=== PATIENT | male | born 1945 | race Caucasian/White ===

== ENCOUNTER 2019-02-21 17:48 | Emergency (ER) | payer MEDICARE ==
[~2019-02-21] VITALS: Ht 177.8 cm; Wt 97.5 kg
[2019-02-21] MEDS ORDERED: KETOROLAC TROMETHAMINE 30 MG/ML VIAL IV STA (18:10)
[2019-02-21] MEDS ORDERED: AMLODIPINE BESYLATE 5 MG TAB PO NR (18:15)
[2019-02-21 18:45] VITALS: BP 166/99
[2019-02-21] MEDS ORDERED: KETOROLAC TROMETHAMINE 60 MG/2 ML VIAL IM NR (18:45)
[2019-02-21] MEDS ORDERED: AMLODIPINE BESYLATE 5 MG TAB ONE (18:45)
[2019-02-21] MEDS ORDERED: AMLODIPINE BESYLATE 5 MG TAB PO ONE (19:45)
--- NOTE | 2019-02-21 19:47 | NUR ---
DISCHARGE ON HOLD R/T BLOOD PRESSURE, MEDICATION GIVEN
== END 2019-02-21 20:33 | disposition home or self-care (01) ==
LOC: FSED 17:48
DX: K04.7 Periapical abscess without sinus (principal); K02.9 Dental caries, unspecified; M10.9 Gout, unspecified
CPT/HCPCS: 99282; J1885 ×2

== ENCOUNTER 2022-11-10 14:25 | Emergency (ER) | payer MEDICARE ==
[~2022-11-10] VITALS: Ht 180.3 cm; Wt 100.4 kg
[~2022-11-10 14:25] MED LIST: AZITHROMYCIN250 MG PO; TAMIFLU75 MG PO
[2022-11-10] MEDS ORDERED: ZESTRIL20 MG PO (14:38)
[2022-11-10] MEDS ORDERED: ALLOPURINOL200 MG (14:38)
[2022-11-10] MEDS ORDERED: CEFTRIAXONE 1 GM VIAL IV ONE (15:00)
[2022-11-10] MEDS ORDERED: LABETALOL HCL 5 MG/ML 20ML VIAL IV STA (15:00)
[2022-11-10] MEDS ORDERED: CEFTRIAXONE 1 GM VIAL ONE (15:11)
[2022-11-10] MEDS ORDERED: LABETALOL HCL 20 ML ONE (15:11)
[2022-11-10] MEDS ORDERED: KETOROLAC TROMETHAMINE 30 MG/ML VIAL ONE (15:11)
[2022-11-10] MEDS ORDERED: CEFDINIR300 MG PO (15:14)
[2022-11-10] MEDS ORDERED: KETOROLAC TROMETHAMINE 30 MG/ML VIAL IV STA (15:14)
[2022-11-10] MEDS ORDERED: FLOMAX0.4 MG PO (15:14)
[2022-11-10] MEDS ORDERED: IBUPROFEN200 MG PO (15:14)
[2022-11-10] MEDS ORDERED: PROBIOTIC DUO1 EACH PO (15:16)
[2022-11-10] MEDS ORDERED: ONDANSETRON HCL INJ 2MG/ML 2ML 2 MG/ML VIAL IV STA (15:17)
== END 2022-11-10 15:47 | disposition home or self-care (01) ==
LOC: FSED 14:34
DX: R31.9 Hematuria, unspecified (principal); N39.0 Urinary tract infection, site not specified; N41.0 Acute prostatitis; I16.0 Hypertensive urgency; N13.30 Unspecified hydronephrosis; I10 Essential (primary) hypertension; M10.9 Gout, unspecified
CPT/HCPCS: 74176; 80053; 81003; 85025; 87086; 96374; 96375; 99284; J0696; J1885; J2405; J3490